=== PATIENT | male | born 1975 | race Hispanic/Latino ===

== ENCOUNTER 2022-01-27 16:20 | Emergency (ER) | payer SELFPAY ==
[~2022-01-27] VITALS: Ht 172.7 cm; Wt 97.7 kg
[2022-01-27 16:45] VITALS: BP 138/84
== END 2022-01-27 18:46 | disposition home or self-care (01) ==
LOC: EDBD 16:20 → M ED 17:31
DX: S96.912A Strain of unspecified muscle and tendon at ankle and foot level, left foot, initial encounter (principal); X50.1XXA Overexertion from prolonged static or awkward postures, initial encounter; Y92.099 Unspecified place in other non-institutional residence as the place of occurrence of the external cause; F17.200 Nicotine dependence, unspecified, uncomplicated; Z87.81 Personal history of (healed) traumatic fracture

== ENCOUNTER 2022-03-15 02:48 | Emergency (ER) | payer SELFPAY ==
[~2022-03-15] VITALS: Ht 172.7 cm; Wt 88.3 kg
[2022-03-15] MEDS ORDERED: NS 1,000 ML IV ONE (03:25)
[2022-03-15] MEDS ORDERED: OXAZEPAM 15MG CAP PO ONE (04:15)
[2022-03-15 08:46] VITALS: BP 124/71
[2022-03-15 08:50] VITALS: O2SAT 100
== END 2022-03-15 08:50 | disposition home or self-care (01) ==
LOC: EDBD 02:48 → M ED 02:48
DX: F11.129 Opioid abuse with intoxication, unspecified (principal); F17.210 Nicotine dependence, cigarettes, uncomplicated